=== PATIENT | female | born 1975 | race Caucasian/White ===

== ENCOUNTER → 2022-05-19 | Outpatient (CLI) | payer OTHER | LOC: LAB 15:23 | DX: Z01.812 Encounter for preprocedural laboratory examination (principal); H47.012 Ischemic optic neuropathy, left eye | CPT/HCPCS: 82565; 84520; 85652; 86140 ==

== ENCOUNTER → 2022-06-30 | Day surgery (SDC) | payer OTHER ==
[~2022-06-30] VITALS: Ht 157.5 cm; Wt 59.0 kg
[~2022-06-30] MED LIST: HYDROCODON-ACE1 EAC6 PO; HYDROCODONE-AC1 EACH PO; IBU800 MG PO; LOVENOX40 MG/0.4 SQ; PROCARDIA XL30 MG PO; PROTONIX 40 MG40 M1 PO; SERTRALINE HCL100 MG PO; WELLBUTRIN XL150 MG PO
== END | disposition home or self-care (01) ==
LOC: OR 07:30
DX: S82.201A Unspecified fracture of shaft of right tibia, initial encounter for closed fracture (principal); S82.831A Other fracture of upper and lower end of right fibula, initial encounter for closed fracture; I10 Essential (primary) hypertension; K21.9 Gastro-esophageal reflux disease without esophagitis; F17.210 Nicotine dependence, cigarettes, uncomplicated; Z79.899 Other long term (current) drug therapy; W11.XXXA Fall on and from ladder, initial encounter
CPT/HCPCS: 73590; 76000; C1713; J0690; J1100; J1170; J1885; J2001; J2250; J2405; J2704; J3010